=== PATIENT | male | born 1945 | race Caucasian/White ===

== ENCOUNTER 2019-06-06 12:28 | Outpatient (CLI) | payer OTHER ==
[2019-06-07] MEDS ORDERED: FENTANYL PF 250 MCG/5ML ONE ×2 (09:27→12:38)
[2019-06-07] MEDS ORDERED: PROPOFOL 50 ML ONE ×5 (09:32→14:48)
[2019-06-07] MEDS ORDERED: GLYCOPYRROLATE 0.2MG/1ML, 5ML ONE (09:32)
[2019-06-07] MEDS ORDERED: PROPOFOL 10 MG/ML, 20ML ONE (09:32)
[2019-06-07] MEDS ORDERED: NEOSTIGMINE 1 MG/ML, 10ML ONE (09:32)
[2019-06-07] MEDS ORDERED: ROCURONIUM 10MG/ML,5ML ONE (09:32)
[2019-06-07] MEDS ORDERED: CEFAZOLIN 1,000 MG ONE ×3 (09:32→14:13)
[2019-06-07] MEDS ORDERED: LISI-170 PO (09:47)
== END 2019-06-06 23:59 | disposition home or self-care (01) ==
LOC: RAD 12:28
PROVIDERS: ATTEND Neurological Surgery
DX: M48.061 Spinal stenosis, lumbar region without neurogenic claudication (principal); M51.16 Intervertebral disc disorders with radiculopathy, lumbar region; M47.27 Other spondylosis with radiculopathy, lumbosacral region
CPT/HCPCS: 72131; J0690; J2704; J2710; J3010

== ENCOUNTER 2019-06-07 08:47 | Inpatient (IN) | payer OTHER ==
[~2019-06-07] VITALS: Ht 182.9 cm; Wt 79.2 kg
[~2019-06-07 08:47] MED LIST: BACITRACIN 50,000 UNIT ONE; BUPIVACAINE/PF 0.5% ONE; EPINEPHRINE 1 MG/ML, 1ML ONE; THROMBIN 5,000 UNIT VIAL TP ONE; VANCOMYCIN 1,000 MG ONE
[2019-06-07 09:10] VITALS: BP 180/90
[2019-06-07] MEDS ORDERED: LACTATED RINGERS 1,000 ML IV SCH (09:15)
[2019-06-07] MEDS ORDERED: ACETAMINOPHEN 500 MG TABLET PO ONE (09:30)
[2019-06-07] MEDS ORDERED: PLEASE ENTER HEIGHT AND WEIGHT MC SCH (09:30)
[2019-06-07] MEDS ORDERED: GABAPENTIN 300 MG CAPSULE PO ONE (09:30)
[2019-06-07] MEDS ORDERED: LISI-170 PO (09:47)
[2019-06-07] MEDS ORDERED: FENTANYL PF 250 MCG/5ML ONE ×2 (11:29)
[2019-06-07] MEDS ORDERED: PROPOFOL 10 MG/ML, 20ML ONE (11:29)
[2019-06-07] MEDS ORDERED: PROPOFOL 10 MG/ML, 50ML ONE ×5 (11:29)
[2019-06-07] MEDS ORDERED: NEOSTIGMINE 1 MG/ML, 10ML ONE (11:29)
[2019-06-07] MEDS ORDERED: GLYCOPYRROLATE 0.2MG/1ML, 5ML ONE (11:29)
[2019-06-07] MEDS ORDERED: ROCURONIUM 10MG/ML,5ML ONE (11:29)
[2019-06-07] MEDS ORDERED: CEFAZOLIN 1,000 MG ONE ×3 (11:29)
[2019-06-07] MEDS ORDERED: HYDROmorphone 1 MG/ML, 1ML VIAL ONE ×2 (16:07→16:35)
[2019-06-07] MEDS: HYDROmorphone 2 MG/ML, 1ML IVPush PRN ×4 (16:10→16:48)
[2019-06-07] MEDS ORDERED: hydrALAzine 20 MG/ML, 1ML ONE (16:16)
[2019-06-07] MEDS ORDERED: LABETALOL 5MG/ML, 20ML IV PRN (16:30)
[2019-06-07] MEDS ORDERED: OXYcodone 5 MG/5 ML ORAL.SOL UDC PO PRN (16:30)
[2019-06-07] MEDS ORDERED: METHOCARBAMOL 1,000 MG in DEXTROSE 5% 100 ML IV ONE (16:30)
[2019-06-07] MEDS ORDERED: ONDANSETRON 2MG/ML, 2ML IV PRN ×2 (16:30→18:00)
[2019-06-07] MEDS ORDERED: MORPHINE SULFATE 4 MG/ML, 1ML IVPush PRN (16:30)
[2019-06-07] MEDS ORDERED: FENTANYL PF 100 MCG/2ML IV PRN (16:30)
[2019-06-07] MEDS ORDERED: hydrALAzine 20 MG/ML, 1ML IV PRN (16:30)
[2019-06-07] MEDS ORDERED: MEPERIDINE/PF 25MG/ML,1ML IVPush PRN (16:30)
[2019-06-07 17:18] VITALS: BP 136/69
[2019-06-07] MEDS ORDERED: DIPHENHYDRAMINE 50 MG/ML, 1ML IVPush PRN (18:00)
[2019-06-07] MEDS ORDERED: BISACODYL 10 MG SUPP PR PRN (18:00)
[2019-06-07] MEDS ORDERED: HYDROcodone/APAP 5/325 TABLET PO PRN (18:00)
[2019-06-07] MEDS ORDERED: HYDROmorphone 2 MG/ML, 1ML IVPush PRN (18:00)
[2019-06-07] MEDS ORDERED: MAGNESIUM HYDROXIDE 8%, 30ML UDC PO PRN (18:00)
[2019-06-07] MEDS ORDERED: METHOCARBAMOL 750 MG TABLET PO PRN (18:00)
[2019-06-07] MEDS: HYDROcodone/APAP 10/325 MG TABLET PO PRN ×2 (18:33→22:44)
[2019-06-07] MEDS: D5%-0.9% NACL+KCL 20MEQ 1,000 ML IV SCH (18:33)
[2019-06-07] MEDS: CEFAZOLIN PMX 1GM/50ML 50 ML IVPB SCH (18:33)
[2019-06-07 18:50] VITALS: BP 99/57
[2019-06-07] MEDS ORDERED: ZOLPIDEM 5MG TABLET PO PRN (21:00)
[2019-06-07 23:20] VITALS: BP 122/61
[2019-06-08] MEDS: CEFAZOLIN PMX 1GM/50ML 50 ML IVPB SCH (02:00)
[2019-06-08] MEDS: HYDROcodone/APAP 10/325 MG TABLET PO PRN ×3 (02:31→10:59)
[2019-06-08] MEDS: D5%-0.9% NACL+KCL 20MEQ 1,000 ML IV SCH ×2 (03:39→08:11)
[2019-06-08 03:54] VITALS: BP 112/65
[2019-06-08 05:31] LABS: MEAN CORPUSCULAR HEMOGLOBIN 30.6 pg (27.5-34.5); MEAN CORPUSCULAR VOLUME 92.6 fL (81-97); MEAN PLATELET VOLUME 7.1 fL (7.4-10.4); PLATELET COUNT 263 x10^3/uL (130-400); RED CELL DISTRIBUTION WIDTH 25.6 % (9.4-14.8)
[2019-06-08 05:35] LABS: ANION GAP 8 mmol/L (5-15); CALCIUM 8.7 mg/dL (8.5-10.1); CHLORIDE 98 mmol/L (98-107)
[2019-06-08 06:19] LABS: BASOPHILS # (AUTO) 0.01 x10^3/uL (0-0.1); BASOPHILS % (AUTO) 0 % (0-1); EOSINOPHILS # (AUTO) 0.01 x10^3/uL (0-0.4); EOSINOPHILS % (AUTO) 0 % (1-7); LYMPHOCYTES # (AUTO) 0.44 x10^3/uL (1-3.4); LYMPHOCYTES % (AUTO) 13 % (22-44); MD SCAN; MONOCYTES # (AUTO) 0.39 x10^3/uL (0.2-0.8); MONOCYTES % (AUTO) 11 % (2-9); NEUTROPHILS # (AUTO) 2.68 x10^3/uL (1.8-6.8); NEUTROPHILS % (AUTO) 76 % (42-75)
[2019-06-08] MEDS: ENOXAPARIN 40 MG/0.4 ML SQ SCH (06:33)
[2019-06-08 07:36] VITALS: BP 173/76
[2019-06-08] MEDS: LISINOPRIL 20 MG TABLET PO SCH (08:13)
[2019-06-08] MEDS: SENNA/DOCUSATE TABLET PO SCH (08:13)
[2019-06-08] MEDS: TAMSULOSIN 0.4 MG CAP.ER.24H PO SCH (08:13)
[2019-06-08 08:45] VITALS: BP 140/72
[2019-06-08 13:40] VITALS: BP 134/56
[2019-06-08 19:25] VITALS: BP 157/84
[2019-06-09 01:57] VITALS: BP 153/74
[2019-06-09 04:42] LABS: MEAN CORPUSCULAR HEMOGLOBIN 30.5 pg (27.5-34.5); MEAN CORPUSCULAR HGB CONC 32.6 g/dL (33.2-36.2); MEAN CORPUSCULAR VOLUME 93.5 fL (81-97); MEAN PLATELET VOLUME 7.1 fL (7.4-10.4); PLATELET COUNT 270 x10^3/uL (130-400); RED CELL DISTRIBUTION WIDTH 25.7 % (9.4-14.8)
[2019-06-09 04:51] LABS: ANION GAP 7 mmol/L (5-15); CALCIUM 9.5 mg/dL (8.5-10.1); CHLORIDE 100 mmol/L (98-107); CREATININE 0.67 mg/dL (0.7-1.3)
[2019-06-09 05:14] LABS: BASOPHILS # (AUTO) 0.01 x10^3/uL (0-0.1); BASOPHILS % (AUTO) 0 % (0-1); EOSINOPHILS # (AUTO) 0.06 x10^3/uL (0-0.4); EOSINOPHILS % (AUTO) 1 % (1-7); LYMPHOCYTES # (AUTO) 0.51 x10^3/uL (1-3.4); LYMPHOCYTES % (AUTO) 10 % (22-44); MD SCAN; MONOCYTES # (AUTO) 0.43 x10^3/uL (0.2-0.8); MONOCYTES % (AUTO) 8 % (2-9); NEUTROPHILS # (AUTO) 4.09 x10^3/uL (1.8-6.8); NEUTROPHILS % (AUTO) 80 % (42-75)
[2019-06-09] MEDS: ENOXAPARIN 40 MG/0.4 ML SQ SCH (05:47)
[2019-06-09 08:03] VITALS: BP 158/71
[2019-06-09] MEDS: LISINOPRIL 20 MG TABLET PO SCH (08:31)
[2019-06-09] MEDS: TAMSULOSIN 0.4 MG CAP.ER.24H PO SCH (08:31)
[2019-06-09] MEDS: SENNA/DOCUSATE TABLET PO SCH (08:31)
[2019-06-09] MEDS: D5%-0.9% NACL+KCL 20MEQ 1,000 ML IV SCH ×2 (08:32)
[2019-06-09] MEDS: HYDROcodone/APAP 10/325 MG TABLET PO PRN (08:34)
[2019-06-09] MEDS ORDERED: HYDR-36 PO (09:01)
[2019-06-09] MEDS ORDERED: TAMS-11 PO (09:02)
[2019-06-09] MEDS ORDERED: METH750T87 PO (09:02)
== END 2019-06-09 12:56 | disposition home or self-care (01) | DRG 454 ==
LOC: ORIP 08:47 → 4NE 17:25 → DCLOUNGE 06-09 12:45
PROVIDERS: ADMIT Neurological Surgery; ATTEND Neurological Surgery
PROC: 0SG0071 Fusion of Lumbar Vertebral Joint with Autologous Tissue Substitute, Posterior Approach, Posterior Column, Open Approach (ICD-10-PCS; 2019-06-07)
PROC: 01NB0ZZ Release Lumbar Nerve, Open Approach (ICD-10-PCS; 2019-06-07)
PROC: 0SB20ZZ Excision of Lumbar Vertebral Disc, Open Approach (ICD-10-PCS; 2019-06-07)
PROC: 4A11X4G Monitoring of Peripheral Nervous Electrical Activity, Intraoperative, External Approach (ICD-10-PCS; 2019-06-07)
PROC: 8E0W0CZ Robotic Assisted Procedure of Trunk Region, Open Approach (ICD-10-PCS; 2019-06-07)
PROC: 0SG00A0 Fusion of Lumbar Vertebral Joint with Interbody Fusion Device, Anterior Approach, Anterior Column, Open Approach (ICD-10-PCS; principal; 2019-06-07 11:00)
DX: M48.062 Spinal stenosis, lumbar region with neurogenic claudication (principal); M51.06 Intervertebral disc disorders with myelopathy, lumbar region; I73.9 Peripheral vascular disease, unspecified; I10 Essential (primary) hypertension; M51.16 Intervertebral disc disorders with radiculopathy, lumbar region; M47.26 Other spondylosis with radiculopathy, lumbar region; R33.9 Retention of urine, unspecified
CPT/HCPCS: 36415; 72100; S0020; 72131; 80048; 85025; C1713; G0378; J0171; J0690; J1170; J1650; J2405; J2704; J2710; J3010; J3370; C1763; C1769; J0360; J2800; J3480; J7120